=== PATIENT | female | born 1970 | race Caucasian/White ===

== ENCOUNTER 2019-10-08 09:54 | Emergency (ER) | payer OTHER ==
[~2019-10-08] VITALS: Ht 157.5 cm; Wt 86.6 kg
[2019-10-08 12:56] VITALS: BP 153/71
[2019-10-08] MEDS ORDERED: OCUF0.25 OS (12:58)
[2019-10-08] MEDS ORDERED: ARTIDRO2 OD (12:58)
== END 2019-10-08 13:06 | disposition home or self-care (01) ==
LOC: M ED 09:54
DX: Z77.098 Contact with and (suspected) exposure to other hazardous, chiefly nonmedicinal, chemicals (principal)

== ENCOUNTER → 2024-01-22 | Outpatient (CLI) | payer BC ==
[~2024-01-22] MED LIST: ARTIDRO4 OD; OCUF0.25 OS
== END ==
LOC: M RAD 11:00
PROVIDERS: ATTEND Internal Medicine
DX: R10.11 Right upper quadrant pain (principal)
CPT/HCPCS: 78227; A9537